=== PATIENT | born 1995 | race Caucasian/White ===

== ENCOUNTER 2025-01-23 20:53 | Emergency (ER) | payer OTHER ==
[~2025-01-23] VITALS: Ht 152.4 cm; Wt 49.9 kg
[2025-01-23 23:04] LABS: PLATELET COUNT (AUTO) 252 K/uL (152-408); RED BLOOD CELL COUNT(AUTO) 5.26 MIL/uL (3.63-5.63); RED CELL DISTRIBUTION WIDTH 12.5 % (12.1-17.7); WHITE BLOOD COUNT (AUTO) 9.6 K/uL (3.6-11.8)
[2025-01-23 23:11] LABS: CREATININE 0.7 mg/dL (0.6-1.3); SODIUM SERUM 143 mmol/L (136-145); UREA NITROGEN, BLOOD 14 mg/dL (7-18)
[2025-01-23 23:13] LABS: *URINE HCG, QUAL NEGATIVE
[2025-01-23 23:15] LABS: *BLOOD, URINE NEGATIVE (NEGATIVE); *CLARITY,URINE CLEAR (CLEAR); *COLOR,URINE YELLOW (YELLOW); *KETONES,URINE 4+ (NEGATIVE); *PROTEIN,URINE 2+ (NEGATIVE); *UROBILINOGEN,URINE 0.2 E.U./dl (NORMAL); LEUKOCYTE ESTERASE ,URINE NEGATIVE (NEGATIVE); NITRITE, URINE NEGATIVE (NEGATIVE); UGLUCOSE NEGATIVE (NEGATIVE)
[2025-01-23 23:17] LABS: ASPARTATE AMINOTRANSFERASE 15 U/L (15-37); TOTAL PROTEIN, SERUM 8.1 g/dL (6.4-8.2)
[2025-01-23 23:18] LABS: *BILIRUBIN,URIN 1+ (NEGATIVE)
[2025-01-23 23:23] LABS: SQUAMOUS EPITHELIAL CELL,UR FEW /HPF (NONE SEEN)
[2025-01-23] MEDS ORDERED: FAMOTIDINE. 20 MG/2 ML VIAL IV ONE (23:44)
[2025-01-23] MEDS ORDERED: ONDANSETRON 4 MG/2 ML VIAL ONE (23:44)
[2025-01-23] MEDS: FAMOTIDINE. 20 MG/2 ML VIAL IV ONE (23:54)
[2025-01-23] MEDS: IV NS 1000 ML 1,000 ML IV ONE (23:54)
[2025-01-23] MEDS: ONDANSETRON 4 MG/2 ML VIAL IV ONE (23:54)
[2025-01-24] VITALS: BP 126/79
[2025-01-24] MEDS ORDERED: METOCLOPRAMIDE HCL 10 MG/2 ML VIAL ONE (00:14)
[2025-01-24] MEDS: METOCLOPRAMIDE HCL 10 MG/2 ML VIAL IV ONE (00:21)
[2025-01-24] MEDS ORDERED: METO-295 PO (01:07)
[2025-01-24 01:19] VITALS: BP 129/81; O2SAT 99
== END 2025-01-24 01:24 | disposition home or self-care (01) ==
LOC: ER 21:09
DX: R11.2 Nausea with vomiting, unspecified (principal); R19.7 Diarrhea, unspecified
CPT/HCPCS: 99284; 96374; 96361; 96375 ×2; 80053; 81001; 84703; 83690; 83735; 85025; 36415; J1308; J2405; J7040; J2765; A4606; A4663